=== PATIENT | male | born 2000 | race Caucasian/White ===

== ENCOUNTER → 2020-12-25 | Outpatient (CLI) | payer OTHER ==
--- NOTE | 2020-12-25 12:29 | REPVR ---
PROCEDURE INFORMATION: Exam: MR Thoracic Spine Without Contrast Exam date and time: 12/25/2020 11:35 AM Age: 20 years old Clinical indication: Injury or trauma; Other: Unknown; Fracture, traumatic; Unspecified; Third thoracic vertebra; Wedge; Injury date: 2 months ago; Additional info: Eval for loss of height from compression FX TECHNIQUE: Imaging protocol: Multiplanar magnetic resonance images of the thoracic spine without intravenous contrast. COMPARISON: No relevant prior studies available. FINDINGS: Limitations: There is motion artifact partially degrading examination. Vertebrae: There is superior endplate compression with mild anterior wedging at T3. Posterior height is preserved. No retropulsion. There is also minimal focal concavity of anterior aspect of superior endplate of T4 also suspected to relate to prior endplate compression fracture. No significant anterior posterior height loss or retropulsion at T4. Remaining vertebral heights are normal. No vertebral subluxation. Spinal cord: Normal signal. No cord compression. T1-T2: No significant disc disease. No significant spinal canal stenosis. T2-T3: No significant disc disease. No significant spinal canal stenosis. T3-T4: No significant disc disease. No significant spinal canal stenosis. T4-T5: No significant disc disease. No significant spinal canal stenosis. T5-T6: No significant disc disease. No significant spinal canal stenosis. T6-T7: No significant disc disease. No significant spinal canal stenosis. T7-T8: No significant disc disease. No significant spinal canal stenosis. T8-T9: No significant disc disease. No significant spinal canal stenosis. T9-T10: No significant disc disease. No significant spinal canal stenosis. T10-T11: No significant disc disease. No significant spinal canal stenosis. T11-T12: No significant disc disease. No significant spinal canal stenosis. Soft tissues: Unremarkable. IMPRESSION: T3 and T4 superior endplate compression fractures with mild anterior wedging of T3. No bony retropulsion . Electronically signed by: Gege Mata On 12/25/2020 12:28:35 PM
== END ==
LOC: M PLARAD 10:37
PROVIDERS: ATTEND Physician Assistant
DX: S22.030D Wedge compression fracture of third thoracic vertebra, subsequent encounter for fracture with routine healing (principal)

== ENCOUNTER → 2022-08-26 | Outpatient (REF) | payer OTHER ==
[2022-08-30 16:08] LABS: ENDOMYSIAL ABY IgA Positive (Negative); TISSUE TRANSGLUTAMINASE IgA 40 U/mL (0-3)
== END ==
LOC: M LAB REF 12:21
PROVIDERS: ATTEND Internal Medicine
DX: R21 Rash and other nonspecific skin eruption (principal); K21.9 Gastro-esophageal reflux disease without esophagitis